=== PATIENT | female | born 2000 | race American Indian/Alaskan Native ===

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

== ENCOUNTER 2020-06-24 13:21 | Emergency (ER) | payer MEDICAID ==
[2020-06-24 13:46] VITALS: BP 122/75
--- NOTE | 2020-06-24 14:55 | XRay Report ---
CLINICAL DATA: MAIN TECHNICAL DATA: Three views were obtained, AP, lateral and oblique. FINDINGS: There is no acute fracture or dislocation. The visualized joint spaces are normal. IMPRESSION: No acute radiographic abnormality. Signer Name: Vincenzo Ayers MD Signed: 06/24/2020 2:50 PM Workstation Name: [id number]
--- NOTE | 2020-06-24 15:23 | Emergency Department Report ---
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 She rates her pain as a 10/10 in severity, but denies any decreased range of motion, numbness/tingling, skin breaks, or other injuries. -: Sudden Quality: constant, other (Throbbing) Improves with: none - Related Data Previous Rx's Medication Instructions Recorded Last Taken Type Sulfamethoxazole/Trimethoprim 1 each PO BID #14 tablet 08/04/18 Unknown Rx [Bactrim DS TAB] Mupirocin [Bactroban 2% OINT] 1 applic TP TID #1 tube 09/19/19 Unknown Rx cephALEXin [Keflex] 250 mg PO QID 7 Days #28 capsule 09/19/19 Unknown Rx Ibuprofen [Motrin 800 MG tab] 800 mg PO Q8HR PRN #21 tablet 06/24/20 Unknown Rx traMADoL [Ultram 50 MG tab] 50 - 100 mg PO Q8HR PRN #10 tablet 06/24/20 Unknown Rx Allergies Allergy/AdvReac Type Severity Reaction Status Date / Time peach Allergy Severe Swelling Verified 06/03/19 16:04 ED Review of Systems ROS: Stated complaint: SLAMMED HAND IN DOOR Other details as noted in HPI Constitutional: denies: fever, malaise Musculoskeletal: joint swelling, arthralgia Skin: denies: change in color Neurological: denies: numbness, paresthesias ED Past Medical Hx - Past Medical History Previous Medical History?: No Hx Diabetes: No Hx Deep Vein Thrombosis: No Hx Renal Disease: No Hx Sickle Cell Disease: No Hx Seizures: No Hx Asthma: No Hx HIV: No - Surgical History Past Surgical History?: No - Social History Smoking Status: Never Smoker Substance Use Type: None - Medications Home Medications: Home Medications Medication Instructions Recorded Confirmed Last Taken Type Sulfamethoxazole/Trimethoprim 1 each PO BID #14 tablet 08/04/18 Unknown Rx [Bactrim DS TAB] Mupirocin [Bactroban 2% OINT] 1 applic TP TID #1 tube 09/19/19 Unknown Rx cephALEXin [Keflex] 250 mg PO QID 7 Days #28 capsule 09/19/19 Unknown Rx Ibuprofen [Motrin 800 MG tab] 800 mg PO Q8HR PRN #21 tablet 06/24/20 Unknown Rx traMADoL [Ultram 50 MG tab] 50 - 100 mg PO Q8HR PRN #10 tablet 06/24/20 Unknown Rx ED Physical Exam - General Limitations: No Limitations General appearance: alert, in no apparent distress - Head Head exam: Present: atraumatic, normocephalic - Eye Eye exam: Present: normal appearance. Absent: scleral icterus - Respiratory Respiratory exam: Absent: respiratory distress - Cardiovascular Cardiovascular Exam: Present: regular rate - Extremities Exam Extremities exam: Present: full ROM, other (Tenderness to palpation and bruising noted to left middle finger; normal capillary refill and sensation noted; no decreased range of motion of the finger noted; skin is intact and nonerythemic) ED Course Vital Signs 06/24/20 13:45 Temperature 97.6 F Pulse Rate 82 Respiratory 18 Rate Blood Pressure 122/75 [Right] O2 Sat by Pulse 100 Oximetry ED Medical Decision Making - Radiology Data Radiology results: report reviewed Procedure(s): XR finger(s) 2+V LT Accession Number(s): [id number] cc: ED DOC, Fluoro Time In Minutes: CLINICAL DATA: MAIN TECHNICAL DATA: Three views were obtained, AP, lateral and oblique. FINDINGS: There is no acute fracture or dislocation. The visualized joint spaces are normal. IMPRESSION: No acute radiographic abnormality. 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 She rates her pain as a 10/10 in severity, but denies any decreased range of motion, numbness/tingling, skin breaks, or other injuries. X-rays negative for fracture. Patient given pain medication and instructed on rice method of treatment. Recommend follow-up with PCP as needed. Strict return precautions were discussed in detail with patient who verbalized understanding. Critical care attestation.: If time is entered above; I have spent that time in minutes in the direct care of this critically ill patient, excluding procedure time. ED Disposition Clinical Impression: Crushing injury of left middle finger, initial encounter Disposition: TO HOME OR SELFCARE Is pt being admited?: No Condition: Stable Instructions: Jammed Finger (ED), Finger Sprain (ED) Prescriptions: Ibuprofen [Motrin 800 MG tab] 800 mg PO Q8HR PRN #21 tablet PRN Reason: Pain, Moderate (4-6) traMADoL [Ultram 50 MG tab] 50 - 100 mg PO Q8HR PRN #10 tablet PRN Reason: Pain , Severe (7-10) Referrals: [facility] [Provider Group] - 3-5 Days
[2020-06-24] MEDS ORDERED: IBUPROFEN 800 MG TAB PO ONE (15:34)
[2020-06-24] MEDS ORDERED: oxyCODONE /ACETAMINOPHEN 5-325MG TAB PO ONE (15:34)
== END 2020-06-24 16:03 | disposition home or self-care (01) ==
LOC: ED 13:21
DX: S69.92XA Unspecified injury of left wrist, hand and finger(s), initial encounter (principal); Z79.899 Other long term (current) drug therapy; Z91.048 Other nonmedicinal substance allergy status; W23.0XXA Caught, crushed, jammed, or pinched between moving objects, initial encounter; Y93.89 Activity, other specified; Y92.89 Other specified places as the place of occurrence of the external cause; Y99.8 Other external cause status
CPT/HCPCS: 99283

== ENCOUNTER 2021-06-30 13:11 | Emergency (ER) | payer MEDICAID ==
[2021-06-30 13:21] VITALS: BP 122/76
--- NOTE | 2021-06-30 14:15 | Emergency Department Report ---
ED ENT HPI - General Chief complaint: Dental/Oral Stated complaint: TOOTH PAIN Time Seen by Provider: 06/30/21 14:10 Source: patient, EMS Mode of arrival: Wheelchair Limitations: No Limitations - History of Present Illness Initial comments: The patient was evaluated in the emergency department for symptoms described in the history of present illness. He/she was evaluated in the context of the global COVID-19 pandemic, which necessitated consideration that the patient might be at risk for infection with the virus that causes COVID-19. Institutional protocols and algorithms that pertain to the evaluation of patients at risk for COVID-19 are in a state of rapid change based on information released by regulatory bodies including the CDC and federal and state organizations. These policies and algorithms were followed during the patient's care in the emergency department. Please note that these policies, procedures and recommendations changed on a rapid basis. 21-year-old -[place] female presents to the emergency room for 3-week history of right third molar pain. Patient states that she has a large hole in her third molar and she does not have an appointment to July. She states that her insurance peach states does not accepted by many providers. She states that appointment is not for another 3 weeks. She denies any known drug allergies. She states that the pain is worse when the air gets to it. She has tried [id number] pain medication oral gel, tried vanilla extract garlic clove with no resolve of her pain. Patient states the pain is going upper head and down her neck. She denies any fever or chills denies any true neck pain. MD complaint: tooth pain Onset/Timin -: week(s) Location: tooth # (32) Severity: severe Severity scale (0 -10): 10 Quality: aching, sharp Consistency: constant Improves with: none Context- Dental: history of dental caries, poor dental care Associated Symptoms: gum swelling, toothache - Related Data Previous Rx's Medication Instructions Recorded Last Taken Type Sulfamethoxazole/Trimethoprim 1 each PO BID #14 tablet 08/04/18 Unknown Rx [Bactrim DS TAB] Mupirocin [Bactroban 2% OINT] 1 applic TP TID #1 tube 09/19/19 Unknown Rx cephALEXin [Keflex] 250 mg PO QID 7 Days #28 capsule 09/19/19 Unknown Rx traMADoL [Ultram 50 MG tab] 50 - 100 mg PO Q8HR PRN #10 tablet 06/24/20 Unknown Rx Acetaminophen/Codeine [Tylenol 1 tab PO Q6H PRN #12 tab 06/30/21 Unknown Rx /Codeine # 3 tab] Clindamycin [Clindamycin CAP] 300 mg PO Q8H 10 Days #30 cap 06/30/21 Unknown Rx Ibuprofen [Motrin 800 MG tab] 800 mg PO Q8HR PRN #21 tablet 06/30/21 Unknown Rx Allergies Allergy/AdvReac Type Severity Reaction Status Date / Time peach Allergy Severe Swelling Verified 06/03/19 16:04 ED Dental HPI - General Chief complaint: Dental/Oral Stated complaint: TOOTH PAIN Time Seen by Provider: 06/30/21 14:10 Source: patient, EMS Mode of arrival: Wheelchair Limitations: No Limitations - Related Data Previous Rx's Medication Instructions Recorded Last Taken Type Sulfamethoxazole/Trimethoprim 1 each PO BID #14 tablet 08/04/18 Unknown Rx [Bactrim DS TAB] Mupirocin [Bactroban 2% OINT] 1 applic TP TID #1 tube 09/19/19 Unknown Rx cephALEXin [Keflex] 250 mg PO QID 7 Days #28 capsule 09/19/19 Unknown Rx traMADoL [Ultram 50 MG tab] 50 - 100 mg PO Q8HR PRN #10 tablet 06/24/20 Unknown Rx Acetaminophen/Codeine [Tylenol 1 tab PO Q6H PRN #12 tab 06/30/21 Unknown Rx /Codeine # 3 tab] Clindamycin [Clindamycin CAP] 300 mg PO Q8H 10 Days #30 cap 06/30/21 Unknown Rx Ibuprofen [Motrin 800 MG tab] 800 mg PO Q8HR PRN #21 tablet 06/30/21 Unknown Rx Allergies Allergy/AdvReac Type Severity Reaction Status Date / Time peach Allergy Severe Swelling Verified 06/03/19 16:04 ED Review of Systems ROS: Stated complaint: TOOTH PAIN Other details as noted in HPI Comment: All other systems reviewed and negative ED Past Medical Hx - Past Medical History Hx Diabetes: No Hx Deep Vein Thrombosis: No Hx Renal Disease: No Hx Sickle Cell Disease: No Hx Seizures: No Hx Asthma: No Hx HIV: No - Social History Smoking Status: Never Smoker Substance Use Type: None - Medications Home Medications: Home Medications Medication Instructions Recorded Confirmed Last Taken Type Sulfamethoxazole/Trimethoprim 1 each PO BID #14 tablet 08/04/18 Unknown Rx [Bactrim DS TAB] Mupirocin [Bactroban 2% OINT] 1 applic TP TID #1 tube 09/19/19 Unknown Rx cephALEXin [Keflex] 250 mg PO QID 7 Days #28 capsule 09/19/19 Unknown Rx traMADoL [Ultram 50 MG tab] 50 - 100 mg PO Q8HR PRN #10 tablet 06/24/20 Unknown Rx Acetaminophen/Codeine [Tylenol 1 tab PO Q6H PRN #12 tab 06/30/21 Unknown Rx /Codeine # 3 tab] Clindamycin [Clindamycin CAP] 300 mg PO Q8H 10 Days #30 cap 06/30/21 Unknown Rx Ibuprofen [Motrin 800 MG tab] 800 mg PO Q8HR PRN #21 tablet 06/30/21 Unknown Rx ED Physical Exam - General Limitations: No Limitations General appearance: alert, in no apparent distress - Head Head exam: Present: atraumatic, normocephalic - Eye Eye exam: Present: normal appearance - ENT ENT exam: Present: mucous membranes moist - Expanded ENT Exam Expanded Teeth exam: Present: dental caries, dental tenderness # (32), gingival enlargement - Neck Neck exam: Present: normal inspection - Respiratory Respiratory exam: Present: normal lung sounds bilaterally. Absent: respiratory distress - Cardiovascular Cardiovascular Exam: Present: regular rate, normal rhythm. Absent: systolic murmur, diastolic murmur, rubs, gallop - GI/Abdominal GI/Abdominal exam: Present: soft, normal bowel sounds - Extremities Exam Extremities exam: Present: normal inspection - Back Exam Back exam: Present: normal inspection - Neurological Exam Neurological exam: Present: alert, oriented X3, normal gait - Psychiatric Psychiatric exam: Present: normal affect, normal mood - Skin Skin exam: Present: warm, dry, intact, normal color. Absent: rash ED Course Vital Signs 06/30/21 13:20 Temperature 98.6 F Pulse Rate 77 Respiratory 16 Rate Blood Pressure 122/76 [Right] O2 Sat by Pulse 100 Oximetry ED Medical Decision Making - Medical Decision Making 21-year-old -[place] female presents to the emergency room for 3-week history of right third molar pain. Patient states that she has a large hole in her third molar and she does not have an appointment to July. She states that her insurance peach states does not accepted by many providers. She states that appointment is not for another 3 weeks. She denies any known drug allergies. She states that the pain is worse when the air gets to it. She has tried jexy-vjl-[id number] pain medication oral gel, tried vanilla extract garlic clove with no resolve of her pain. Patient states the pain is going upper head and down her neck. She denies any fever or chills denies any true neck pain. Patient placed on plan Tylenol 3 and naproxen Critical care attestation.: If time is entered above; I have spent that time in minutes in the direct care of this critically ill patient, excluding procedure time. ED Disposition Clinical Impression: Dental abscess Disposition: 01 HOME / SELF CARE / HOMELESS Is pt being admited?: No Does the pt Need Aspirin: No Condition: Stable Instructions: Dental Abscess, [id number] Additional Instructions: Complete antibiotics take pain medication. Do not operate heavy machinery. Prescriptions: Clindamycin [Clindamycin CAP] 300 mg PO Q8H 10 Days #30 cap Ibuprofen [Motrin 800 MG tab] 800 mg PO Q8HR PRN #21 tablet PRN Reason: Pain, Moderate (4-6) Acetaminophen/Codeine [Tylenol /Codeine # 3 tab] 1 tab PO Q6H PRN #12 tab PRN Reason: Pain , Severe (7-10) Referrals: [facility] [Outside] - 3-5 Days [facility] [Outside] - 3-5 Days [facility] [Outside] - 3-5 Days Forms: Work/School Release Form(ED) Time of Disposition: 14:21
== END 2021-06-30 14:56 | disposition home or self-care (01) ==
LOC: ED 13:11
DX: K04.7 Periapical abscess without sinus (principal); Z91.018 Allergy to other foods
CPT/HCPCS: 99283